=== PATIENT | male | born 1965 | race Caucasian/White ===

== ENCOUNTER 2020-07-04 00:31 | Outpatient (CLI) | payer BC, SELFPAY ==
[2020-07-05 13:40] LABS: SARS-CoV-2 RNA PCR Negative
== END 2020-07-04 00:32 | disposition home or self-care (01) ==
LOC: ANHCOVIDDT 00:32
PROVIDERS: PCP Family Medicine Sports Medicine; Visit Provider Internal Medicine Gastroenterology
DX: Z01.812 Encounter for preprocedural laboratory examination (principal); Z11.59 Encounter for screening for other viral diseases
CPT/HCPCS: 87635; C9803; U0003

== ENCOUNTER 2020-07-07 01:08 | Day surgery (SDC) | payer BC, SELFPAY ==
[2020-07-01 14:10] VITALS: BMI 27.5
[2020-07-07 07:19] VITALS: BP 127/82; PULSE 73; RESP 21; TEMP 36.2; O2SAT 97; BMI 27.4
--- NOTE | 2020-07-07 07:28 | P.HP_ITS ---
History of Present Illness History of Present Illness Consent: Risks, benefits, and alternatives have been discussed and questions answered. Patient agrees to proceed with procedure. Chief complaint: Neoplasm Screening Narrative: Joe Menchaca is a 55 year old W male referred for screening colonoscopy. Patient is asymptomatic no family history of colon polyps colon cancer this is his 1st screening exam. REPLACED BY [facility] Surgical History Surgical History (Updated 07/07/20 @ 07:29 by Geovany Lopez MD) Status post tonsillectomy and adenoidectomy Social History Social History Years smoked: 33 Smoking status: Current every day smoker Alcohol intake: never Substance use: never Substance use type: does not use Living arrangements: with family Spiritual care concerns: No Meds Home Medications and Allergies Allergies Allergy/AdvReac Type Severity Reaction Status Date / Time No Known Allergies Allergy Verified 07/07/20 07:17 Vital Signs Vital Signs - 24 hr 07/07/20 07:19 Temperature 36.2 C L Pulse Rate 73 Respiratory Rate 21 H Blood Pressure 127/82 Pulse Oximetry 97 Exam Const: Orientation/consciousness: patient oriented x3 Resp: Auscultation: clear to auscultation bilaterally Cardio: Rate: regular rate Rhythm: regular rhythm Heart sounds: no murmurs GI: GI Palp: Yes Soft to palpation, No Tenderness to palpation present (GI), Yes No hepatosplenomegaly present and No Palpable mass present Auscultation: normal bowel sounds Neuro: General: patient oriented x3 and no focal motor deficits Extrem: General: no pedal edema Assessment and Plan Additional Plan 1st screening colonoscopy in average risk patient
[2020-07-07] MEDS: LACTATED RINGERS 1,000 ML 150 ML IV CONT (07:32)
--- NOTE | 2020-07-07 08:33 | P.PNAN_ITS ---
Anes - Initial Pre Proc Eval Procedure: Operation Date: 07/07/20 08:30 Proposed Procedures p Screening Colonoscopy - Geovany Lopez MD Date/Time: 07/07/20 08:33 Surgeon: Geovany Lopez MD Pre Op Diagnosis: Neoplasm Screening Patient Data Age: 55 Gender: M Height: 5 ft 5 in Weight: 74.8 kg Last Vital Signs Temp 97.2 F L 07/07/20 07:19 Pulse 73 07/07/20 07:19 Resp 21 H 07/07/20 07:19 BP 127/82 07/07/20 07:19 Pulse Ox 97 07/07/20 07:19 Allergies Allergy/AdvReac Type Severity Reaction Status Date / Time No Known Allergies Allergy Verified 07/07/20 07:17 Home Medications Medication Instructions Recorded Confirmed Type No Home Medications 07/07/20 07/07/20 History Patient hx anesthesia problems: none Family hx anesthesia problems: none [facility] Surgical History Surgical History (Updated 07/07/20 @ 07:29 by Geovany Lopez MD) Status post tonsillectomy and adenoidectomy Social History Social History Years smoked: 33 Smoking status: Current every day smoker Alcohol intake: never Substance use: never Substance use type: does not use Living arrangements: with family Spiritual care concerns: No Anes - Eval Final PreProcedure Day of Procedure 07/07/20 08:33 Patient weight: normal Heart: regular rate and rhythm Lungs: clear to auscultation Airway: Mallampati scale class III Neurological: alert and oriented Last oral intake: >/= 8 hours ASA classification: II Emergent: no Anesthetic plan: proceed Anesthesia type and monitoring: general GIVS and standard monitoring Informed Consent: The patient's anesthetic plan and its attendant risks and benefits were discussed with the patient/family/POA. Questions were solicited and answers provided to the satisfaction of the patient/family/POA.
[2020-07-07 09:13] VITALS: BP 94/59; PULSE 63; RESP 18; O2SAT 97
[2020-07-07 09:23] VITALS: BP 109/72; PULSE 62; RESP 18; O2SAT 98
[2020-07-07 09:33] VITALS: BP 122/81; PULSE 61; RESP 18; O2SAT 98
== END 2020-07-07 09:54 | disposition home or self-care (01) ==
PROVIDERS: PCP Family Medicine Sports Medicine; Visit Provider Internal Medicine Gastroenterology
PROC: 0DJD8ZZ Inspection of Lower Intestinal Tract, Via Natural or Artificial Opening Endoscopic (ICD-10-PCS; CPT 45378; principal; 2020-07-07 08:30)
DX: Z12.11 Encounter for screening for malignant neoplasm of colon (principal); D12.2 Benign neoplasm of ascending colon; F17.210 Nicotine dependence, cigarettes, uncomplicated
CPT/HCPCS: 45385; 88305; J2704; J7120